=== PATIENT | female | born 1960 | race Caucasian/White ===

== ENCOUNTER 2016-10-05 15:14 | Inpatient (IN) | payer BC ==
[~2016-10-05] VITALS: Ht 170.2 cm; Wt 110.7 kg
[2016-10-05 16:06] LABS: BASO # 0.1 x10^3/uL (0.0-0.2); BASO % 1 % (0-3); EOS % 0 % (0-3); HEMATOCRIT 45.6 % (36.0-47.0); HEMOGLOBIN 15.2 g/dL (12.0-15.5); LYMPH # 1.3 x10^3/uL (1.0-4.8); LYMPH % 10 % (24-48); MEAN CORPUSCULAR HEMOGLOBIN 29 pg (25-35); MEAN CORPUSCULAR HGB CONC 33 g/dL (31-37); MEAN CORPUSCULAR VOLUME 87 fL (79-100); MONO % 9 % (0-9); NEUT % 80 % (31-73); PLATELET COUNT 242 x10^3/uL (140-400); RED BLOOD COUNT 5.26 x10^6/uL (3.50-5.40); RED CELL DISTRIBUTION WIDTH 15.5 % (11.5-14.5); WHITE BLOOD COUNT 12.9 x10^3/uL (4.0-11.0)
[2016-10-05 16:07] LABS: BILIRUBIN,URINE SMALL (NEG); GLUCOSE,URINE NEGATIVE (NEG); NITRITE,URINE NEGATIVE (NEG); PROTEIN,URINE 100 mg/dL (NEG-TRACE); UROBILINOGEN,URINE 0.2 mg/dL (0.2 mg/dL)
[2016-10-05] MEDS ORDERED: LORAZEPAM 2 MG/ML VIAL IV ONE (16:15)
[2016-10-05 16:21] LABS: ALBUMIN 3.8 g/dL (3.4-5.0); ALBUMIN/GLOBULIN RATIO 0.6 (1.0-1.7); CALCIUM 9.8 mg/dL (8.5-10.1); CREATININE 0.9 mg/dL (0.6-1.0); GFR 64.8; TOTAL BILIRUBIN 0.6 mg/dL (0.2-1.0)
[2016-10-05 16:27] LABS: BACTERIA,URINE MANY /HPF (0-FEW); RBC,URINE 20-40 /HPF (0-2); SQUAMOUS EPITHELIAL CELL,UR MANY /LPF; WBC,URINE RARE /HPF (0-4)
[2016-10-05] MEDS ORDERED: LORAZEPAM 2 MG/ML VIAL IV PRN (18:00)
[2016-10-05] MEDS ORDERED: ONDANSETRON PF 4 MG/2 ML VIAL. IV PRN (18:00)
[2016-10-05] MEDS ORDERED: CEFTRIAXONE 1GM IVPB FOR OMNI 50 ML IV ONE (18:00)
--- NOTE | 2016-10-05 18:14 | PHYS DOC ---
Past Medical History Past Medical History: Depression, High Cholesterol, Hypertension Past Surgical History: Cholecystectomy Alcohol Use: Rarely Drug Use: None Adult General Chief Complaint Chief Complaint: DIARRHEA HPI HPI 56-year-old female presents with 2 day history of intractable nausea vomiting and diarrhea. She states she's not been able to drink more than 20 ounces of fluid daily. She states she's having severe abdominal cramping. She denies any melena or hematemesis. She denies hematochezia. She states no one else is been sick that she knows of. [] Review of Systems Review of Systems Constitutional: Denies fever or chills [] Eyes: Denies change in visual acuity, redness, or eye pain [] HENT: Denies nasal congestion or sore throat [] Respiratory: Denies cough or shortness of breath [] Cardiovascular: No additional information not addressed in HPI [] GI: Denies abdominal pain, nausea, vomiting, bloody stools or diarrhea [] : Denies dysuria or hematuria [] Musculoskeletal: Denies back pain or joint pain [] Integument: Denies rash or skin lesions [] Neurologic: Denies headache, focal weakness or sensory changes [] Endocrine: Denies polyuria or polydipsia [] Current Medications Current Medications Current Medications Medications (Trade) Dose Ordered Sig/Maryann Start Time Stop Time Status Last Admin Dose Admin Ceftriaxone Sodium (Rocephin 1gm Ivpb For Omni) 50 ml @ 100 mls/hr 1X ONCE 10/05/16 18:00 10/05/16 18:29 Lorazepam 2 mg 2 mg 1X ONCE 10/05/16 16:15 10/05/16 16:16 DC 10/05/16 16:23 2 MG Allergies Allergies Allergies Coded Allergies Type Severity Reaction Last Updated Verified codeine Allergy Intermediate 10/05/16 Yes corn Allergy Intermediate 10/05/16 Yes dextrose Allergy Intermediate 10/05/16 Yes egg Allergy Intermediate 10/05/16 Yes milk Allergy Intermediate 10/05/16 Yes naproxen Allergy Intermediate 10/05/16 Yes propoxyphene Allergy Intermediate 10/05/16 Yes soy Allergy Intermediate 10/05/16 Yes Physical Exam Physical Exam Constitutional: Well developed, well nourished, no acute distress, non-toxic appearance. [] HENT: Normocephalic, atraumatic, bilateral external ears normal, oropharynx moist, no oral exudates, nose normal. [] Eyes: PERRLA, EOMI, conjunctiva normal, no discharge. [] Neck: Normal range of motion, no tenderness, supple, no stridor. [] Cardiovascular:Heart rate regular rhythm, no murmur [] Lungs & Thorax: Bilateral breath sounds clear to auscultation [] Abdomen: Bowel sounds normal, soft, no tenderness, no masses, no pulsatile masses. [] Skin: Warm, dry, no erythema, no rash. [] Back: No tenderness, no CVA tenderness. [] Extremities: No tenderness, no cyanosis, no clubbing, ROM intact, no edema. [] Neurologic: Alert and oriented X 3, normal motor function, normal sensory function, no focal deficits noted. [] Psychologic: Extremely anxious. [] Current Patient Data Vital Signs Vital Signs Date Time Temp Pulse Resp B/P Pulse Ox O2 Delivery O2 Flow Rate FiO2 10/05/16 15:23 97.7 110 20 150/110 99 Room Air 97.7 Lab Values Laboratory Tests Test 10/05/16 15:50 White Blood Count 12.9x10^3/uL (4.0-11.0) H Red Blood Count 5.26x10^6/uL (3.50-5.40) Hemoglobin 15.2g/dL (12.0-15.5) Hematocrit 45.6% (36.0-47.0) Mean Corpuscular Volume 87fL (79-100) Mean Corpuscular Hemoglobin 29pg (25-35) Mean Corpuscular Hemoglobin Concent 33g/dL (31-37) Red Cell Distribution Width 15.5% (11.5-14.5) H Platelet Count 242x10^3/uL (140-400) Neutrophils (%) (Auto) 80% (31-73) H Lymphocytes (%) (Auto) 10% (24-48) L Monocytes (%) (Auto) 9% (0-9) Eosinophils (%) (Auto) 0% (0-3) Basophils (%) (Auto) 1% (0-3) Neutrophils # (Auto) 10.4x10^3uL (1.8-7.7) H Lymphocytes # (Auto) 1.3x10^3/uL (1.0-4.8) Monocytes # (Auto) 1.2x10^3/uL (0.0-1.1) H Eosinophils # (Auto) 0.0x10^3/uL (0.0-0.7) Basophils # (Auto) 0.1x10^3/uL (0.0-0.2) Urine Collection Type Unknown Urine Color Dk yellow Urine Clarity Cloudy Urine pH 6.0 Urine Specific [place] >=1.030 Urine Protein 100mg/dL (NEG-TRACE) Urine Glucose (UA) Negativemg/dL (NEG) Urine Ketones (Stick) 15mg/dL (NEG) Urine Blood Large (NEG) Urine Nitrite Negative (NEG) Urine Bilirubin Small (NEG) Urine Urobilinogen Dipstick 0.2mg/dL (0.2 mg/dL) Urine Leukocyte Esterase Negative (NEG) Urine RBC 20-40/HPF (0-2) Urine WBC Rare/HPF (0-4) Urine Squamous Epithelial Cells Many/LPF Urine Bacteria Many/HPF (0-FEW) Urine Mucus Marked/LPF Sodium Level 141mmol/L (136-145) Potassium Level 3.0mmol/L (3.5-5.1) L Chloride Level 102mmol/L (98-107) Carbon Dioxide Level 21mmol/L (21-32) Anion Gap 18 (6-14) H Blood Urea Nitrogen 17mg/dL (7-20) Creatinine 0.9mg/dL (0.6-1.0) Estimated GFR (Cockcroft-Gault) 64.8 BUN/Creatinine Ratio 19 (6-20) Glucose Level 116mg/dL (70-99) H Calcium Level 9.8mg/dL (8.5-10.1) Total Bilirubin 0.6mg/dL (0.2-1.0) Aspartate Amino Transferase (AST) 45U/L (15-37) H Alanine Aminotransferase (ALT) 38U/L (14-59) Alkaline Phosphatase 153U/L (46-116) H Total Protein 10.0g/dL (6.4-8.2) H Albumin 3.8g/dL (3.4-5.0) Albumin/Globulin Ratio 0.6 (1.0-1.7) L Lipase 74U/L (73-393) Laboratory Tests 10/05/16 15:50 Laboratory Tests 10/05/16 15:50 EKG EKG [] Radiology/Procedures Radiology/Procedures [] Course & Med Decision Making Course & Med Decision Making Pertinent Labs and Imaging studies reviewed. (See chart for details) [ED course: Evaluation reveals a 56-year-old extremely anxious female who claims that she's been vomiting and having multiple bouts of diarrhea over the last couple days. She was given IV fluids and Ativan and Zofran during her stay in the [facility] from which did help alleviate her symptoms. Given her degree of anxiety and a urinary tract infection she was determined to need hospital admission. I spoke with Dr. Villela who agreed to accept the patient for admission.] Dragon Disclaimer Dragon Disclaimer This electronic medical record was generated, in whole or in part, using a voice recognition dictation system. Departure Departure Impression: Primary Impression: Acute gastroenteritis Disposition: ADMITTED INPATIENT Admitting Physician: Diane Villela Condition: IMPROVED Referrals: GEORGIA GU MD (PCP) JENNIFER SAGASTUME DO Oct 05, 2016 18:14
[2016-10-05] MEDS ORDERED: IV NORMAL SALINE 1000ML BAG 1,000 ML IV SCH ×2 (18:30→22:30)
--- NOTE | 2016-10-05 18:49 | ACF ---
Admission Forms Criteria GASTROENTERITIS Clinical Indications for Admission to Inpatient Care (Place 'X' for any and all applicable criteria): Admission is indicated for ANY ONE of the following (1)(2)(3)(4)(5)(6): [X]I. Inpatient admission required rather than observation care (Also use Gastroenteritis: Observation Care as appropriate) because of ANY ONE of the following: [X]a) Vomiting that is severe or persistent [ ]b) Dehydration that is severe or persistent [ ]c) Hemodynamic instability that is severe or persistent [ ]d) Signs of intestinal obstruction or peritonitis [A] [ ]e) Hemolytic uremic syndrome is diagnosed. [ ]f) Absent bowel sounds with complete ileus (2) [ ]g) IV fluid to replace significant ongoing losses (greater than 3 L/m2 per day) [ ]h) Parenteral nutrition regimen that must be implemented on inpatient basis [ ]i) Other condition, treatment or monitoring requiring inpatient admission [ ]II. Suspected severe infection (eg, presence of high fever, severe or bloody diarrhea)(7)(8) [ ]III. Severe abdominal tenderness [ ]IV. Toxic megacolon Extended stay beyond goal length of stay may be needed for(4)(5)(6)(18) [ ]a) Persistent vital sign changes, severe electrolyte imbalance, or ongoing fluid losses that require continued hospitalization [ ]b) Other diagnosed cause for gastrointestinal symptoms (eg, intestinal obstruction,inflammatory bowel disease) that requires continued hospitalization [ ]c) Severe Clostridium difficile infection(8)(22) [ ]d) Bacterial dysentery(7) [ ]e) Radiation gastroenteritis [ ]f) Endoscopy with lesion [ ]g) Clinically significant medical comorbidities that require inpatient care [ ]h) Older patients (65 years or older) [ ]i) Hemolytic uremic syndrome (20) [ ]j) Toxic megacolon The original [facility] content created by [employer] has been revised. The portions of the content which have been revised are identified through the use of italic text or in bold, and [facility] has neither reviewed nor approved the modified material. All other unmodified content is copyright [facility]. Please see references footnoted in the original [facility] edition 2016 Admission Criteria Met?: Yes KAMALA BRANDT Oct 05, 2016 18:49
[2016-10-05 19:00] VITALS: BP 136/66
[2016-10-05] MEDS ORDERED: ZOLPIDEM PO (22:23)
[2016-10-05] MEDS ORDERED: Vit D3 PO (22:23)
[2016-10-05] MEDS ORDERED: CLON1TAB3 PO (22:23)
[2016-10-05] MEDS ORDERED: Losartan PO (22:23)
[2016-10-05] MEDS ORDERED: SIMV20TA3 PO (22:23)
[2016-10-05] MEDS ORDERED: ONDA8TAB9 PO (22:23)
[2016-10-05] MEDS ORDERED: Sertraline PO (22:23)
[2016-10-05] MEDS ORDERED: MONT10TA6 PO (22:23)
[2016-10-05] MEDS ORDERED: LANS30CA PO (22:23)
[2016-10-05] MEDS ORDERED: POTASSIUM CHLORIDE 20 MEQ TABLET.ER. PO ONE (22:30)
[2016-10-05] MEDS: CLONAZEPAM 1 MG TABLET PO PRN (22:40)
[2016-10-05 23:00] VITALS: BP 147/72
[2016-10-06 03:00] VITALS: BP 141/88
[2016-10-06 04:53] LABS: BASO % 0 % (0-3); EOS % 1 % (0-3); HEMATOCRIT 39.5 % (36.0-47.0); HEMOGLOBIN 12.9 g/dL (12.0-15.5); LYMPH # 1.4 x10^3/uL (1.0-4.8); LYMPH % 16 % (24-48); MEAN CORPUSCULAR HEMOGLOBIN 29 pg (25-35); MEAN CORPUSCULAR HGB CONC 33 g/dL (31-37); MEAN CORPUSCULAR VOLUME 87 fL (79-100); MONO % 11 % (0-9); NEUT % 72 % (31-73); PLATELET COUNT 184 x10^3/uL (140-400); RED BLOOD COUNT 4.52 x10^6/uL (3.50-5.40); WHITE BLOOD COUNT 8.8 x10^3/uL (4.0-11.0)
[2016-10-06 05:07] LABS: ALBUMIN 3.3 g/dL (3.4-5.0); ALBUMIN/GLOBULIN RATIO 0.6 (1.0-1.7); CALCIUM 9.2 mg/dL (8.5-10.1); CREATININE 0.8 mg/dL (0.6-1.0); GFR 74.2; TOTAL BILIRUBIN 0.5 mg/dL (0.2-1.0); TOTAL PROTEIN 8.4 g/dL (6.4-8.2)
[2016-10-06 05:09] LABS: POTASSIUM 2.4 mmol/L (3.5-5.1)
[2016-10-06] MEDS ORDERED: POTASSIUM CHLORIDE 10 MEQ TABLET.ER. PO ONE (06:00)
[2016-10-06 07:00] VITALS: BP 140/80
--- NOTE | 2016-10-06 07:49 | PDOC ---
PROGRESS NOTES Subjective Subjective Patient reports no further emesis since admission, still having diarrhea. Objective Objective Vital Signs Date Time Temp Pulse Resp B/P Pulse Ox O2 Delivery O2 Flow Rate FiO2 10/06/16 03:00 97.7 105 18 141/88 96 Room Air 97.7 Intake and Output 10/06/16 07:00 Intake Total 50 ml Balance 50 ml Intake IV Total 50 ml # Voids 2 # Bowel Movements 5 Physical Exam Abdomen: Normal bowel sounds, Soft, No tenderness Heart: Regular rate Extremities: No edema General: Alert, Oriented X3, No acute distress Lungs: Clear to auscultation Assessment Assessment Problems Medical Problems: (1) Acute gastroenteritis Status: Acute Plan Plan of Care 1. Gastroenteritis - appears to be improving. Mild dehydration at admission which has resolved with IVF overnight. Stool for C Diff pending, patient without any obvious risk factors for this. Patient states she still feels very weak. Will advance diet today and follow. 2. hypokalemia - replacing po. 3. chronic anxiety - continue home meds. 4. HTN - continue home med. 5. possible UTI - patient had no symptoms prior to admission. Urine did have 20- 40 WBC's but also moderate squamous cells. Patient received one dose of Rocephin in ER. Culture pending, will hold on further abx until culture available. Comment Review of Relevant I have reviewed the following items chrystal (where applicable) has been applied. Labs Laboratory Tests Test 10/05/16 15:50 10/06/16 04:40 White Blood Count 12.9x10^3/uL (4.0-11.0) 8.8x10^3/uL (4.0-11.0) Red Blood Count 5.26x10^6/uL (3.50-5.40) 4.52x10^6/uL (3.50-5.40) Hemoglobin 15.2g/dL (12.0-15.5) 12.9g/dL (12.0-15.5) Hematocrit 45.6% (36.0-47.0) 39.5% (36.0-47.0) Mean Corpuscular Volume 87fL (79-100) 87fL (79-100) Mean Corpuscular Hemoglobin 29pg (25-35) 29pg (25-35) Mean Corpuscular Hemoglobin Concent 33g/dL (31-37) 33g/dL (31-37) Red Cell Distribution Width 15.5% (11.5-14.5) 15.0% (11.5-14.5) Platelet Count 242x10^3/uL (140-400) 184x10^3/uL (140-400) Neutrophils (%) (Auto) 80% (31-73) 72% (31-73) Lymphocytes (%) (Auto) 10% (24-48) 16% (24-48) Monocytes (%) (Auto) 9% (0-9) 11% (0-9) Eosinophils (%) (Auto) 0% (0-3) 1% (0-3) Basophils (%) (Auto) 1% (0-3) 0% (0-3) Neutrophils # (Auto) 10.4x10^3uL (1.8-7.7) 6.3x10^3uL (1.8-7.7) Lymphocytes # (Auto) 1.3x10^3/uL (1.0-4.8) 1.4x10^3/uL (1.0-4.8) Monocytes # (Auto) 1.2x10^3/uL (0.0-1.1) 1.0x10^3/uL (0.0-1.1) Eosinophils # (Auto) 0.0x10^3/uL (0.0-0.7) 0.0x10^3/uL (0.0-0.7) Basophils # (Auto) 0.1x10^3/uL (0.0-0.2) 0.0x10^3/uL (0.0-0.2) Urine Collection Type Unknown Urine Color Dk yellow Urine Clarity Cloudy Urine pH 6.0 Urine Specific [place] >=1.030 Urine Protein 100mg/dL (NEG-TRACE) Urine Glucose (UA) Negativemg/dL (NEG) Urine Ketones (Stick) 15mg/dL (NEG) Urine Blood Large (NEG) Urine Nitrite Negative (NEG) Urine Bilirubin Small (NEG) Urine Urobilinogen Dipstick 0.2mg/dL (0.2 mg/dL) Urine Leukocyte Esterase Negative (NEG) Urine RBC 20-40/HPF (0-2) Urine WBC Rare/HPF (0-4) Urine Squamous Epithelial Cells Many/LPF Urine Bacteria Many/HPF (0-FEW) Urine Mucus Marked/LPF Sodium Level 141mmol/L (136-145) 144mmol/L (136-145) Potassium Level 3.0mmol/L (3.5-5.1) 2.4mmol/L (3.5-5.1) Chloride Level 102mmol/L (98-107) 107mmol/L (98-107) Carbon Dioxide Level 21mmol/L (21-32) 21mmol/L (21-32) Anion Gap 18 (6-14) 16 (6-14) Blood Urea Nitrogen 17mg/dL (7-20) 15mg/dL (7-20) Creatinine 0.9mg/dL (0.6-1.0) 0.8mg/dL (0.6-1.0) Estimated GFR (Cockcroft-Gault) 64.8 74.2 BUN/Creatinine Ratio 19 (6-20) 19 (6-20) Glucose Level 116mg/dL (70-99) 112mg/dL (70-99) Calcium Level 9.8mg/dL (8.5-10.1) 9.2mg/dL (8.5-10.1) Total Bilirubin 0.6mg/dL (0.2-1.0) 0.5mg/dL (0.2-1.0) Aspartate Amino Transf (AST/SGOT) 45U/L (15-37) 35U/L (15-37) Alanine Aminotransferase (ALT/SGPT) 38U/L (14-59) 34U/L (14-59) Alkaline Phosphatase 153U/L (46-116) 130U/L (46-116) Total Protein 10.0g/dL (6.4-8.2) 8.4g/dL (6.4-8.2) Albumin 3.8g/dL (3.4-5.0) 3.3g/dL (3.4-5.0) Albumin/Globulin Ratio 0.6 (1.0-1.7) 0.6 (1.0-1.7) Lipase 74U/L (73-393) Laboratory Tests Test 10/05/16 15:50 10/06/16 04:40 White Blood Count 12.9x10^3/uL (4.0-11.0) 8.8x10^3/uL (4.0-11.0) Red Blood Count 5.26x10^6/uL (3.50-5.40) 4.52x10^6/uL (3.50-5.40) Hemoglobin 15.2g/dL (12.0-15.5) 12.9g/dL (12.0-15.5) Hematocrit 45.6% (36.0-47.0) 39.5% (36.0-47.0) Mean Corpuscular Volume 87fL (79-100) 87fL (79-100) Mean Corpuscular Hemoglobin 29pg (25-35) 29pg (25-35) Mean Corpuscular Hemoglobin Concent 33g/dL (31-37) 33g/dL (31-37) Red Cell Distribution Width 15.5% (11.5-14.5) 15.0% (11.5-14.5) Platelet Count 242x10^3/uL (140-400) 184x10^3/uL (140-400) Neutrophils (%) (Auto) 80% (31-73) 72% (31-73) Lymphocytes (%) (Auto) 10% (24-48) 16% (24-48) Monocytes (%) (Auto) 9% (0-9) 11% (0-9) Eosinophils (%) (Auto) 0% (0-3) 1% (0-3) Basophils (%) (Auto) 1% (0-3) 0% (0-3) Neutrophils # (Auto) 10.4x10^3uL (1.8-7.7) 6.3x10^3uL (1.8-7.7) Lymphocytes # (Auto) 1.3x10^3/uL (1.0-4.8) 1.4x10^3/uL (1.0-4.8) Monocytes # (Auto) 1.2x10^3/uL (0.0-1.1) 1.0x10^3/uL (0.0-1.1) Eosinophils # (Auto) 0.0x10^3/uL (0.0-0.7) 0.0x10^3/uL (0.0-0.7) Basophils # (Auto) 0.1x10^3/uL (0.0-0.2) 0.0x10^3/uL (0.0-0.2) Urine Collection Type Unknown Urine Color Dk yellow Urine Clarity Cloudy Urine pH 6.0 Urine Specific [place] >=1.030 Urine Protein 100mg/dL (NEG-TRACE) Urine Glucose (UA) Negativemg/dL (NEG) Urine Ketones (Stick) 15mg/dL (NEG) Urine Blood Large (NEG) Urine Nitrite Negative (NEG) Urine Bilirubin Small (NEG) Urine Urobilinogen Dipstick 0.2mg/dL (0.2 mg/dL) Urine Leukocyte Esterase Negative (NEG) Urine RBC 20-40/HPF (0-2) Urine WBC Rare/HPF (0-4) Urine Squamous Epithelial Cells Many/LPF Urine Bacteria Many/HPF (0-FEW) Urine Mucus Marked/LPF Sodium Level 141mmol/L (136-145) 144mmol/L (136-145) Potassium Level 3.0mmol/L (3.5-5.1) 2.4mmol/L (3.5-5.1) Chloride Level 102mmol/L (98-107) 107mmol/L (98-107) Carbon Dioxide Level 21mmol/L (21-32) 21mmol/L (21-32) Anion Gap 18 (6-14) 16 (6-14) Blood Urea Nitrogen 17mg/dL (7-20) 15mg/dL (7-20) Creatinine 0.9mg/dL (0.6-1.0) 0.8mg/dL (0.6-1.0) Estimated GFR (Cockcroft-Gault) 64.8 74.2 BUN/Creatinine Ratio 19 (6-20) 19 (6-20) Glucose Level 116mg/dL (70-99) 112mg/dL (70-99) Calcium Level 9.8mg/dL (8.5-10.1) 9.2mg/dL (8.5-10.1) Total Bilirubin 0.6mg/dL (0.2-1.0) 0.5mg/dL (0.2-1.0) Aspartate Amino Transf (AST/SGOT) 45U/L (15-37) 35U/L (15-37) Alanine Aminotransferase (ALT/SGPT) 38U/L (14-59) 34U/L (14-59) Alkaline Phosphatase 153U/L (46-116) 130U/L (46-116) Total Protein 10.0g/dL (6.4-8.2) 8.4g/dL (6.4-8.2) Albumin 3.8g/dL (3.4-5.0) 3.3g/dL (3.4-5.0) Albumin/Globulin Ratio 0.6 (1.0-1.7) 0.6 (1.0-1.7) Lipase 74U/L (73-393) Medications Current Medications Lorazepam 2 mg 2 mg 1X ONCE IV Last administered on 10/05/16 16:23; Start at 16:15; Stop 10/05/16 at 16:16; Status DC Ceftriaxone Sodium (Rocephin 1gm Ivpb For Omni) 50 ml @ 100 mls/hr 1X ONCE IV Last administered on 10/05/16 18:30; Start 10/05/16 at 18:00; Stop 10/05/16 at 18:29; Status DC Ondansetron HCl 4 mg 4 mg PRN Q8HRS PRN IV NAUSEA/VOMITING Last administered on 10/06/16 06:07; Start 10/05/16 at 18:00; Stop 10/06/16 at 17:59 Sodium Chloride (Iv Sodium Chloride 0.9% 1000ml Bag) 1,000 ml @ 150 mls/hr Q6H40M IV Last administered on 10/05/16 19:15; Start 10/05/16 at 18:30; Stop 10/05/16 at 22:12; Status DC Lorazepam 1 mg 1 mg PRN Q6HRS PRN IV Anxiety; Start 10/05/16 at 18:00 Sodium Chloride (Iv Sodium Chloride 0.9% 1000ml Bag) 1,000 ml @ 100 mls/hr Q10H IV Last administered on 10/05/16 04:00; Start 10/05/16 at 22:30; Stop at 22:31; Status DC Clonazepam (Klonopin) 1 mg PRN BID PRN PO ANXIETY / AGITATION Last administered on 10/05/16 22:40; Start 10/05/16 at 22:15 Potassium Chloride (Klor-Con) 20 meq 1X ONCE PO Last administered on 22:40; Start 10/05/16 at 22:30; Stop 10/05/16 at 22:31; Status DC Potassium Chloride (Klor-Con) 20 meq 1X ONCE PO Last administered on 05:53; Start 10/06/16 at 06:00; Stop 10/06/16 at 06:01; Status DC Active Scripts Active Reported Lansoprazole 30 Mg Capsule.dr 1 Cap PO DAILY [Sertraline] 150 Mg PO DAILY Take one and one half to two tabs by mouth daily Simvastatin 20 Mg Tablet 20 Mg PO HS Singulair Tablet (Montelukast Sodium) 10 Mg Tablet 10 Mg PO HS [Zolpidem] 10 Mg PO HS PRN Zofran (Ondansetron Hcl) 8 Mg Tablet 1 Tab PO Q8HRS PRN [Vit D3] 5,000 Units PO DAILY [Losartan] 100 Mg PO DAILY Clonazepam 1 Mg Tablet 1 Tab PO BID PRN Vitals/I & O Vital Sign - Last 24 Hours 10/05/16 10/05/16 10/05/16 10/06/16 15:23 19:00 23:00 03:00 Temp 97.7 97.7 98.1 97.7 97.7 97.7 98.1 97.7 Pulse 110 76 72 105 Resp 20 18 18 18 B/P 150/110 136/66 147/72 141/88 Pulse Ox 99 98 98 96 O2 Delivery Room Air Room Air Room Air Room Air Intake and Output 10/05/16 10/05/16 10/06/16 15:00 23:00 07:00 Intake Total 50 ml Balance 50 ml SANJUANITA WALKER MD Oct 06, 2016 07:49
[2016-10-06] MEDS ORDERED: ZOLPIDEM 5 MG TABLET. PO PRN (08:00)
--- NOTE | 2016-10-06 08:21 | HP ---
ADMIT DATE: 10/06/2016 CHIEF COMPLAINT: Nausea, vomiting, and diarrhea. HISTORY OF PRESENT ILLNESS: The patient is a 56-year-old female, who presented to the Emergency Room with the above complaint. She reported a 2-day history of intractable nausea and vomiting with many loose stools. She was unable to keep down much food or fluids and was feeling progressively weaker. Initial evaluation in the Emergency Room showed the patient to be very mildly dehydrated. She was started on IV fluids and admitted for further treatment. PAST MEDICAL HISTORY: Hypertension, chronic anxiety, GERD, chronic allergy, insomnia. PAST SURGICAL HISTORY: Laparoscopic cholecystectomy. ALLERGIES: THE PATIENT HAS MULTIPLE FOOD ALLERGIES. SHE IS ALSO ALLERGIC OR INTOLERANT TO CODEINE, DEXTROSE, NAPROXEN, AND PROPOXYPHENE. HOME MEDICATIONS: Clonazepam 1 mg b.i.d., lansoprazole 30 mg daily, Singulair 10 mg daily, simvastatin 20 mg at bedtime, losartan 100 mg daily, sertraline 150 mg daily, zolpidem 10 mg at bedtime p.r.n. FAMILY HISTORY: Noncontributory. SOCIAL HISTORY: The patient is single. She is employed. She does not smoke cigarettes or drink alcohol. REVIEW OF SYSTEMS: The patient denies fever or chills. She denies cough or shortness of breath. She denies chest pain or palpitations. She does not have any significant abdominal pain at this time. She denies dysuria or increased urinary frequency. She denies lower extremity edema. Her chronic anxiety has been fairly well controlled with her present medications. PHYSICAL EXAMINATION: GENERAL: The patient is alert and oriented x 3, resting comfortably in bed, in no acute distress. HEENT: PERRL, EOMI, sclerae clear. Oropharynx: Mucous membranes moist. NECK: Supple, without lymphadenopathy. CHEST: Clear to auscultation. CARDIOVASCULAR: Regular rhythm without murmur. ABDOMEN: Soft, nontender. Normoactive bowel sounds are present. EXTREMITIES: Without edema. ASSESSMENT AND PLAN: 1. Gastroenteritis: The patient's symptoms appear to be improving. She had mild dehydration on her lab at admission, which has improved with IV fluids overnight. She has had no emesis since her admission. She is continuing to have loose stools and a test for C. difficile is pending at this time. The patient does not have any obvious risk factors for C. difficile and denies a history of this. The patient states that she still feels very weak. We will advance her to a regular diet today and she is encouraged to increase her oral fluids as tolerated. IV Zofran is available for her. 2. Hypokalemia: The patient's potassium was decreased at admission and is lower today at 2.4. IV fluids have been discontinued. We will also replace her potassium orally and follow her labs for this. 3. Chronic anxiety: Continue home medications. 4. Hypertension: Continue losartan. 5. Possible urinary tract infection: The patient had no symptoms of this prior to admission. Her urine did have 20 to 40 wbc's, but also moderate squamous epithelial cells, so it could certainly represent contamination. She did receive one dose of Rocephin in the ER. A urine culture is pending. We will hold off on further antibiotics until the culture report is available. SANJUANITA WALKER MD DR: LUZ MARIA/marisol JOB#: [id number] / [id number] JANELL
[2016-10-06] MEDS: LANSOPRAZOLE 30 MG TAB.RAP.DR PO SCH (08:53)
[2016-10-06] MEDS: LOSARTAN POTASSIUM 50 MG TABLET. PO SCH (08:54)
[2016-10-06] MEDS ORDERED: CETI10TA22 PO (08:57)
[2016-10-06] MEDS ORDERED: SERTRALINE 50 MG TABLET. PO SCH ×2 (09:00→21:00)
[2016-10-06] MEDS ORDERED: POTASSIUM CHLORIDE 20 MEQ TABLET.ER. PO ONE ×2 (14:00→22:00)
[2016-10-06] MEDS: CETIRIZINE HCL 10 MG TABLET PO SCH (14:00)
[2016-10-06 15:09] VITALS: BP 125/69
[2016-10-06] MEDS: LOPERAMIDE 2 MG CAPSULE PO PRN ×2 (17:09→21:24)
[2016-10-06 19:00] VITALS: BP 160/69
[2016-10-06] MEDS ORDERED: SIMVASTATIN 20 MG TABLET PO SCH (21:00)
[2016-10-06] MEDS ORDERED: MONTELUKAST SODIUM 10 MG TABLET. PO SCH (21:00)
[2016-10-06] MEDS: CLONAZEPAM 1 MG TABLET PO PRN (21:34)
[2016-10-06 23:00] VITALS: BP 148/85
[2016-10-06] MEDS ORDERED: DIPHENHYDRAMINE 50 MG/ML VIAL IVP PRN (23:45)
[2016-10-06] MEDS ORDERED: MAG HYDROX/ALUMINUM HYD/SIMETH 30 ML ORAL.SUSP PO PRN (23:45)
[2016-10-07 03:00] VITALS: BP 122/66
[2016-10-07 05:17] LABS: CALCIUM 9.2 mg/dL (8.5-10.1); CREATININE 0.8 mg/dL (0.6-1.0); GFR 74.2
[2016-10-07 05:28] LABS: POTASSIUM 2.7 mmol/L (3.5-5.1)
[2016-10-07] MEDS ORDERED: POTASSIUM CHLORIDE 20 MEQ TABLET.ER. PO ONE ×2 (06:00→09:00)
[2016-10-07] MEDS: LANSOPRAZOLE 30 MG TAB.RAP.DR PO SCH (07:40)
[2016-10-07 07:54] VITALS: BP 115/62
[2016-10-07 08:51] VITALS: BP 115/62
[2016-10-07] MEDS: LOSARTAN POTASSIUM 50 MG TABLET. PO SCH (08:51)
[2016-10-07] MEDS: CETIRIZINE HCL 10 MG TABLET PO SCH (08:51)
[2016-10-07] MEDS ORDERED: LOPE2CAP PO (08:54)
--- NOTE | 2016-10-07 08:56 | PDOC ---
PROGRESS NOTES Subjective Subjective Patient reports that nausea has resolved and diarrhea is much improved, no stools since last night. Objective Objective Vital Signs Date Time Temp Pulse Resp B/P Pulse Ox O2 Delivery O2 Flow Rate FiO2 10/07/16 08:51 69 115/62 10/07/16 07:54 97.9 18 98 Room Air 97.9 Intake and Output 10/07/16 07:00 Intake Total 650 ml Output Total 1 ml Balance 649 ml Intake Oral 650 ml Output Urine Total 0 ml Stool Total 1 ml # Voids 14 # Bowel Movements 4 Physical Exam Abdomen: Normal bowel sounds, Soft, No tenderness Heart: Regular rate Extremities: No edema General: Alert, Oriented X3, No acute distress Lungs: Clear to auscultation Assessment Assessment Problems Medical Problems: (1) Acute gastroenteritis Status: Acute Plan Plan of Care 1. Viral gastroenteritis - symptoms resolving well. Stool is negative for C Diff. Tolerating regular diet with good appetite. Home today, Imodium prn. 2. hypokalemia - improving. One more dose of K+ prior to discharge today. 3. HTN - controlled, continue home med. 4. chronic anxiety - stable, continue her usual meds for this. Comment Review of Relevant I have reviewed the following items chrystal (where applicable) has been applied. Labs Laboratory Tests Test 10/05/16 15:50 10/05/16 21:40 10/06/16 04:40 10/07/16 03:48 White Blood Count 12.9x10^3/uL (4.0-11.0) 8.8x10^3/uL (4.0-11.0) Red Blood Count 5.26x10^6/uL (3.50-5.40) 4.52x10^6/uL (3.50-5.40) Hemoglobin 15.2g/dL (12.0-15.5) 12.9g/dL (12.0-15.5) Hematocrit 45.6% (36.0-47.0) 39.5% (36.0-47.0) Mean Corpuscular Volume 87fL (79-100) 87fL (79-100) Mean Corpuscular Hemoglobin 29pg (25-35) 29pg (25-35) Mean Corpuscular Hemoglobin Concent 33g/dL (31-37) 33g/dL (31-37) Red Cell Distribution Width 15.5% (11.5-14.5) 15.0% (11.5-14.5) Platelet Count 242x10^3/uL (140-400) 184x10^3/uL (140-400) Neutrophils (%) (Auto) 80% (31-73) 72% (31-73) Lymphocytes (%) (Auto) 10% (24-48) 16% (24-48) Monocytes (%) (Auto) 9% (0-9) 11% (0-9) Eosinophils (%) (Auto) 0% (0-3) 1% (0-3) Basophils (%) (Auto) 1% (0-3) 0% (0-3) Neutrophils # (Auto) 10.4x10^3uL (1.8-7.7) 6.3x10^3uL (1.8-7.7) Lymphocytes # (Auto) 1.3x10^3/uL (1.0-4.8) 1.4x10^3/uL (1.0-4.8) Monocytes # (Auto) 1.2x10^3/uL (0.0-1.1) 1.0x10^3/uL (0.0-1.1) Eosinophils # (Auto) 0.0x10^3/uL (0.0-0.7) 0.0x10^3/uL (0.0-0.7) Basophils # (Auto) 0.1x10^3/uL (0.0-0.2) 0.0x10^3/uL (0.0-0.2) Urine Collection Type Unknown Urine Color Dk yellow Urine Clarity Cloudy Urine pH 6.0 Urine Specific [place] >=1.030 Urine Protein 100mg/dL (NEG-TRACE) Urine Glucose (UA) Negativemg/dL (NEG) Urine Ketones (Stick) 15mg/dL (NEG) Urine Blood Large (NEG) Urine Nitrite Negative (NEG) Urine Bilirubin Small (NEG) Urine Urobilinogen Dipstick 0.2mg/dL (0.2 mg/dL) Urine Leukocyte Esterase Negative (NEG) Urine RBC 20-40/HPF (0-2) Urine WBC Rare/HPF (0-4) Urine Squamous Epithelial Cells Many/LPF Urine Bacteria Many/HPF (0-FEW) Urine Mucus Marked/LPF Sodium Level 141mmol/L (136-145) 144mmol/L (136-145) 144mmol/L (136-145) Potassium Level 3.0mmol/L (3.5-5.1) 2.4mmol/L (3.5-5.1) 2.7mmol/L (3.5-5.1) Chloride Level 102mmol/L (98-107) 107mmol/L (98-107) 108mmol/L (98-107) Carbon Dioxide Level 21mmol/L (21-32) 21mmol/L (21-32) 23mmol/L (21-32) Anion Gap 18 (6-14) 16 (6-14) 13 (6-14) Blood Urea Nitrogen 17mg/dL (7-20) 15mg/dL (7-20) 11mg/dL (7-20) Creatinine 0.9mg/dL (0.6-1.0) 0.8mg/dL (0.6-1.0) 0.8mg/dL (0.6-1.0) Estimated GFR (Cockcroft-Gault) 64.8 74.2 74.2 BUN/Creatinine Ratio 19 (6-20) 19 (6-20) Glucose Level 116mg/dL (70-99) 112mg/dL (70-99) 86mg/dL (70-99) Calcium Level 9.8mg/dL (8.5-10.1) 9.2mg/dL (8.5-10.1) 9.2mg/dL (8.5-10.1) Total Bilirubin 0.6mg/dL (0.2-1.0) 0.5mg/dL (0.2-1.0) Aspartate Amino Transf (AST/SGOT) 45U/L (15-37) 35U/L (15-37) Alanine Aminotransferase (ALT/SGPT) 38U/L (14-59) 34U/L (14-59) Alkaline Phosphatase 153U/L (46-116) 130U/L (46-116) Total Protein 10.0g/dL (6.4-8.2) 8.4g/dL (6.4-8.2) Albumin 3.8g/dL (3.4-5.0) 3.3g/dL (3.4-5.0) Albumin/Globulin Ratio 0.6 (1.0-1.7) 0.6 (1.0-1.7) Lipase 74U/L (73-393) Clostridium difficile Toxin (PCR) Negative (Negative) Laboratory Tests Test 10/07/16 03:48 Sodium Level 144mmol/L (136-145) Potassium Level 2.7mmol/L (3.5-5.1) Chloride Level 108mmol/L (98-107) Carbon Dioxide Level 23mmol/L (21-32) Anion Gap 13 (6-14) Blood Urea Nitrogen 11mg/dL (7-20) Creatinine 0.8mg/dL (0.6-1.0) Estimated GFR (Cockcroft-Gault) 74.2 Glucose Level 86mg/dL (70-99) Calcium Level 9.2mg/dL (8.5-10.1) Medications Current Medications Lorazepam 2 mg 2 mg 1X ONCE IV Last administered on 10/05/16 16:23; Start at 16:15; Stop 10/05/16 at 16:16; Status DC Ceftriaxone Sodium (Rocephin 1gm Ivpb For Omni) 50 ml @ 100 mls/hr 1X ONCE IV Last administered on 10/05/16 18:30; Start 10/05/16 at 18:00; Stop 10/05/16 at 18:29; Status DC Ondansetron HCl 4 mg 4 mg PRN Q8HRS PRN IV NAUSEA/VOMITING Last administered on 10/06/16 06:07; Start 10/05/16 at 18:00; Stop 10/06/16 at 17:59; Status DC Sodium Chloride (Iv Sodium Chloride 0.9% 1000ml Bag) 1,000 ml @ 150 mls/hr Q6H40M IV Last administered on 10/05/16 19:15; Start 10/05/16 at 18:30; Stop 10/05/16 at 22:12; Status DC Lorazepam 1 mg 1 mg PRN Q6HRS PRN IV Anxiety; Start 10/05/16 at 18:00 Sodium Chloride (Iv Sodium Chloride 0.9% 1000ml Bag) 1,000 ml @ 100 mls/hr Q10H IV Last administered on 10/05/16 04:00; Start 10/05/16 at 22:30; Stop at 22:31; Status DC Clonazepam (Klonopin) 1 mg PRN BID PRN PO ANXIETY / AGITATION Last administered on 10/06/16 21:34; Start 10/05/16 at 22:15 Potassium Chloride (Klor-Con) 20 meq 1X ONCE PO Last administered on 22:40; Start 10/05/16 at 22:30; Stop 10/05/16 at 22:31; Status DC Potassium Chloride (Klor-Con) 20 meq 1X ONCE PO Last administered on 05:53; Start 10/06/16 at 06:00; Stop 10/06/16 at 06:01; Status DC Montelukast Sodium (Singulair) 10 mg HS PO Last administered on 10/06/16 21:23 ; Start 10/06/16 at 21:00 Simvastatin (Zocor) 20 mg HS PO Last administered on 10/06/16 21:34; Start at 21:00 Lansoprazole (Prevacid) 30 mg DAILYAC PO Last administered on 10/07/16 07:40; Start 10/06/16 at 08:00 Losartan Potassium (Cozaar) 100 mg DAILY PO Last administered on 10/07/16 08: 51; Start 10/06/16 at 09:00 Sertraline HCl (Zoloft) 150 mg DAILY PO ; Start 10/06/16 at 09:00; Stop at 10:02; Status DC Zolpidem Tartrate (Ambien) 5 mg PRN QHS PRN PO INSOMNIA Last administered on 23:06; Start 10/06/16 at 08:00 Potassium Chloride (Klor-Con) 20 meq 1X ONCE PO Last administered on 14:53; Start 10/06/16 at 14:00; Stop 10/06/16 at 14:01; Status DC Potassium Chloride (Klor-Con) 20 meq 1X ONCE PO Last administered on 21:23; Start 10/06/16 at 22:00; Stop 10/06/16 at 22:01; Status DC Sertraline HCl (Zoloft) 150 mg QHS PO Last administered on 10/06/16 21:24; Start 10/06/16 at 21:00 Cetirizine HCl (Zyrtec) 10 mg DAILY PO Last administered on 10/07/16 08:51; Start 10/06/16 at 14:00 Loperamide HCl (Imodium) 2 mg PRN Q15MIN PRN PO DIARRHEA Last administered on 21:24; Start 10/06/16 at 16:45 Diphenhydramine HCl (Benadryl) 50 mg PRN Q8HRS PRN IVP For Itching Last administered on 10/07/16 00:46; Start 10/06/16 at 23:45 Al Hydroxide/Mg Hydroxide (Mylanta Plus Xs) 30 ml PRN Q4HRS PRN PO HEARTBURN / GAS; Start 10/06/16 at 23:45 Potassium Chloride (Klor-Con) 20 meq 1X ONCE PO Last administered on 06:25; Start 10/07/16 at 06:00; Stop 10/07/16 at 06:01; Status DC Potassium Chloride (Klor-Con) 20 meq 1X ONCE PO ; Start 10/07/16 at 09:00; Stop 10/07/16 at 09:01; Status UNV Active Scripts Active Reported Zyrtec (Cetirizine Hcl) 10 Mg Tablet 1 Tab PO DAILY Lansoprazole 30 Mg Capsule.dr 1 Cap PO DAILY [Sertraline] 150 Mg PO DAILY Take one and one half to two tabs by mouth daily Simvastatin 20 Mg Tablet 20 Mg PO HS Singulair Tablet (Montelukast Sodium) 10 Mg Tablet 10 Mg PO HS [Zolpidem] 10 Mg PO HS PRN Zofran (Ondansetron Hcl) 8 Mg Tablet 1 Tab PO Q8HRS PRN [Vit D3] 5,000 Units PO DAILY [Losartan] 100 Mg PO DAILY Clonazepam 1 Mg Tablet 1 Tab PO BID PRN Vitals/I & O Vital Sign - Last 24 Hours 10/06/16 10/06/16 10/06/16 10/06/16 09:03 11:00 15:09 19:00 Temp 97.7 98.1 97.7 98.1 Pulse 78 77 Resp 18 18 B/P 125/69 160/69 Pulse Ox 98 98 O2 Delivery Room Air Room Air Room Air Room Air 10/06/16 10/06/16 10/07/16 10/07/16 20:00 23:00 03:00 07:54 Temp 98.4 98.1 97.9 98.4 98.1 97.9 Pulse 86 80 69 Resp 18 18 18 B/P 148/85 122/66 115/62 Pulse Ox 97 98 98 O2 Delivery Room Air Room Air Room Air Room Air 10/07/16 08:51 Pulse 69 B/P 115/62 Intake and Output 10/06/16 10/06/16 10/07/16 15:00 23:00 07:00 Intake Total 650 ml Output Total 1 ml Balance 650 ml -1 ml SANJUANITA WALKER MD Oct 07, 2016 08:56
--- NOTE | 2016-10-07 11:39 | DS ---
DATE OF DISCHARGE: 10/07/2016 CHIEF COMPLAINT: Nausea, vomiting and diarrhea. HISTORY OF PRESENT ILLNESS: The patient is a 56-year-old female who presented to the Emergency Room with the above complaint. She reported a 2-day history of intractable nausea and vomiting with many loose stools. She was unable to keep down much food or fluids and was feeling progressively weaker. Initial evaluation in the Emergency Room showed the patient to be very mildly dehydrated. She was started on IV fluids and admitted for further treatment. HOSPITAL COURSE: The patient had no further emesis during her hospital stay. Her IV fluids were discontinued and her diet was advanced. She is now tolerating regular diet with a good appetite. Her stool was negative for C. difficile. Once these results were received she was started on p.r.n. Imodium. She has taken two doses of this and has had no further diarrhea since last night. She feels much better and will be discharged to home today. The patient has had hypokalemia at admission, this was replaced orally and improved but was still somewhat low today. She will receive 2 doses of oral potassium today prior to discharge for treatment of this. The patient's chronic conditions including hypertension and anxiety were controlled with her home medications. She had 20-40 wbc's in her urine at admission, but there were also many squamous epithelial cells present and it is suspected that this represents contamination. She was not having any symptoms of urinary tract infection prior to admission. A culture is pending and the patient is advised to call our office on Monday for the final culture report. No antibiotics were indicated at this time. FINAL DIAGNOSES: 1. Viral gastroenteritis. 2. Hypokalemia. 3. Hypertension. 4. Chronic anxiety. DISCHARGE MEDICATIONS: Imodium 2 mg p.r.n. diarrhea, Zyrtec 10 mg daily, clonazepam 1 mg b.i.d. p.r.n., lansoprazole 30 mg daily, Singulair 10 mg daily, Zofran 8 mg p.o. p.r.n., simvastatin 20 mg at bedtime, losartan 100 mg daily, sertraline 150 mg daily, zolpidem p.r.n. FOLLOWUP: Followup is with Dr. Casper as needed. Call our office Monday for final urine culture report. SANJUANITA WALKER MD DR: LUZ MARIA/marisol JOB#: [id number] / [id number] JANELL
== END 2016-10-07 12:19 | disposition home or self-care (01) | DRG 392 ==
LOC: ER 15:14 → 5 NORTH 18:15
PROVIDERS: ADMIT Family Medicine; ATTEND Family Medicine
DX: A08.4 Viral intestinal infection, unspecified (principal); K21.9 Gastro-esophageal reflux disease without esophagitis; I10 Essential (primary) hypertension; F41.9 Anxiety disorder, unspecified; E87.6 Hypokalemia; E86.0 Dehydration; Z90.49 Acquired absence of other specified parts of digestive tract
CPT/HCPCS: 36415; 80048; 80053; 81001; 83690; 85027; 87086; 87324; 96365; 96375; J0690; J1200; J2060; J2405; J7030; 99285-25

== ENCOUNTER 2017-06-03 20:13 | Emergency (ER) | payer BC ==
[~2017-06-03] VITALS: Ht 170.2 cm; Wt 108.9 kg
[~2017-06-03 20:13] MED LIST: CETI10TA22 PO; CLON1TAB3 PO; LANS30CA PO; LOPE2CAP PO; Losartan PO; MONT10TA6 PO; ONDA8TAB9 PO; SIMV20TA3 PO; Sertraline PO; Vit D3 PO; ZOLPIDEM PO
[2017-06-03] MEDS ORDERED: DIPHTH,PERTUSS(ACELL),TET TOX 0.5 ML DISP.SYRIN. VAX IM ONE (21:00)
[2017-06-03 21:07] VITALS: BP 168/85
--- NOTE | 2017-06-03 21:21 | PHYS DOC ---
Past Medical History Past Medical History: Depression, High Cholesterol, Hypertension Past Surgical History: Cholecystectomy Alcohol Use: Rarely Drug Use: Marijuana Adult General Chief Complaint Chief Complaint: KNEE INJURY HPI HPI Patient is a 57 year old female presents to the emergency department stating that she was walking inside [facility] when she was dragging her feet onto the fact it was raining outside and states that she went to go get a cart and fell on concrete that was wet. She has an abrasion noted on her left knee. She does have full range of motion of the knee at this time. She does have swelling noted of the knee. Peripheral pulses are 2+ cap refill brisk less than 2 seconds. Patient states that she has been placing ice packs over the area. She believes her tetanus is physician is greater than 10 years. She denies any numbness or tingling in her lower extremity. Review of Systems Review of Systems Constitutional: Denies fever or chills [] Eyes: Denies change in visual acuity, redness, or eye pain [] HENT: Denies nasal congestion or sore throat [] Respiratory: Denies cough or shortness of breath [] Cardiovascular: No additional information not addressed in HPI [] GI: Denies abdominal pain, nausea, vomiting, bloody stools or diarrhea [] : Denies dysuria or hematuria [] Musculoskeletal: Denies back pain complaint of left knee pain Integument: Denies rash or skin lesions. Abrasion left knee Neurologic: Denies headache, focal weakness or sensory changes [] Endocrine: Denies polyuria or polydipsia [] All other systems were reviewed and found to be within normal limits, except as documented in this note. Current Medications Current Medications Current Medications Medications (Trade) Dose Ordered Sig/Maryann Start Time Stop Time Status Last Admin Dose Admin Diphtheria/ Tetanus/Acell Pertussis (Boostrix) 0.5 ml ONCE ONCE 06/03/17 21:00 06/03/17 21:01 DC Allergies Allergies Allergies Coded Allergies Type Severity Reaction Last Updated Verified codeine Allergy Intermediate 10/05/16 Yes corn Allergy Intermediate 10/05/16 Yes dextrose Allergy Intermediate 10/05/16 Yes egg Allergy Intermediate 10/05/16 Yes milk Allergy Intermediate 10/05/16 Yes naproxen Allergy Intermediate 10/05/16 Yes propoxyphene Allergy Intermediate 10/05/16 Yes soy Allergy Intermediate 10/05/16 Yes Physical Exam Physical Exam Constitutional: Well developed, well nourished, no acute distress, non-toxic appearance. [] HENT: Normocephalic, atraumatic, bilateral external ears normal, oropharynx moist, no oral exudates, nose normal. [] Eyes: PERRLA, EOMI, conjunctiva normal, no discharge. [] Neck: Normal range of motion, no tenderness, supple, no stridor. [] Cardiovascular:Heart rate regular rhythm Lungs & Thorax: No respiratory distress noted Skin: Warm, dry, no erythema, no rash. [] Extremities: Left knee tenderness, no cyanosis, no clubbing, ROM intact, no edema. Peripheral pulses 2+ cap refill brisk less than 2 seconds. Patient with full range of motion of the left knee however she does have a positive Joel. Negative vargus negative valgus. Neurologic: Alert and oriented X 3, normal motor function, normal sensory function, no focal deficits noted. [] Psychologic: Affect normal, judgement normal, mood normal. [] Current Patient Data Vital Signs Vital Signs Date Time Temp Pulse Resp B/P (MAP) Pulse Ox O2 Delivery O2 Flow Rate FiO2 06/03/17 21:07 98.2 95 16 168/85 (112) 96 Room Air 98.2 EKG EKG [] Radiology/Procedures Radiology/Procedures [] Course & Med Decision Making Course & Med Decision Making Pertinent Labs and Imaging studies reviewed. (See chart for details) Left knee x-ray was negative per Dr. Negrete. Abrasion was cleaned with soap and water with Band-Aid placed over the area. Patient will be placed in a knee immobilizer with recommendations for ice packs on 20 minutes off 20 minutes several times a day elevation as much as possible. Patient was recommended to take ibuprofen 800 mg every 8 hours with food stuck take if you develop an upset stomach. Patient states that she does have a orthopedic doctor [place] in which she can follow-up with. []I've spoken with the patient and/or caregivers. I've explained the patient's condition, diagnosis and treatment plan based on information available to me at this time. I've answered the patient's and/or caregivers questions and addressed any concerns. The patient and/or caregivers have a good understanding the patient's diagnosis, condition and treatment plan as can be expected at this point. Vital signs have been stabilized. The patient's condition is stable for discharge from the emergency department. The patient will pursue further outpatient evaluation with her primary care provider or other designated consulting physician as outlined in the discharge instructions. Patient and/or caregivers are agreeable to this plan of care and follow-up instructions have been explained in detail. The patient and/or caregivers have received these instructions in written format and expressed understanding of these discharge instructions. The patient and her caregivers are aware that if any significant change in condition or worsening of symptoms should prompt him to immediately return to this of the closest emergency department. If an emergent department is not readily available I would encourage him to call 911. Dragon Disclaimer Dragon Disclaimer This electronic medical record was generated, in whole or in part, using a voice recognition dictation system. Departure Departure Impression: Primary Impression: Left knee pain Additional Impression: Abrasion, left knee, initial encounter Disposition: HOME, SELF-CARE Condition: STABLE Referrals: GEORGIA GU MD (PCP) ANDREW RATLIFF II, MD, JOHN N MD Patient Instructions: Abrasion, [id number], Knee Pain, [id number] Additional Instructions: Activity as tolerated. With a knee immobilizer until follow-up with orthopedic. Take the knee out of the immobilizer 2-3 times a day and do active range of motion. Ibuprofen 800 mg every 8 hours. Take this medication with food to prevent stomach upset. If he did develop an upset stomach please stop taking. Ice packs on 20 minutes off 20 minutes several times daily Elevation as much as possible. Follow-up with your orthopedic doctor in the next week. Return back to emergency for signs symptoms become worse. Problem Qualifiers Primary Impression: Left knee pain Chronicity: acute Qualified Codes: M25.562 - Pain in left knee ISELA CRUZ APRN Jun 03, 2017 21:21
--- NOTE | 2017-06-04 07:54 | RAD ---
EXAM: Left knee, 4 views. HISTORY: Swelling. COMPARISON: None. FINDINGS: Frontal, lateral, oblique and sunrise views of the left knee are obtained. There is no acute fracture, dislocation or subluxation. There is no significant joint effusion. There is a tiny ossific density adjacent to the medial tibial spine, possibly an intra-articular osteophyte or tiny joint loose body. IMPRESSION: No acute osseous finding.
== END 2017-06-03 21:50 | disposition home or self-care (01) ==
LOC: ER 20:13
DX: S80.212A Abrasion, left knee, initial encounter (principal); F32.9 Major depressive disorder, single episode, unspecified; E78.00 Pure hypercholesterolemia, unspecified; I10 Essential (primary) hypertension; Z88.5 Allergy status to narcotic agent; Z88.6 Allergy status to analgesic agent; Z91.012 Allergy to eggs; Z91.011 Allergy to milk products; Z88.8 Allergy status to other drugs, medicaments and biological substances; Z91.018 Allergy to other foods; W18.39XA Other fall on same level, initial encounter; Y93.01 Activity, walking, marching and hiking; Y92.89 Other specified places as the place of occurrence of the external cause; Y99.8 Other external cause status
CPT/HCPCS: 29505; 73564; 90471; 90715; 99284-25